=== PATIENT | male | born 1940 | race Caucasian/White ===

== ENCOUNTER 2017-07-24 16:33 | Emergency (ER) | payer MEDICARE, BC ==
[2017-07-24] MEDS: ACETAMINOPHEN 500 MG TABLET PO ×2 (17:42)
== END 2017-07-24 18:50 | disposition home or self-care (01) ==
LOC: ER 16:33
DX: S22.42XA Multiple fractures of ribs, left side, initial encounter for closed fracture (principal); S00.93XA Contusion of unspecified part of head, initial encounter; S50.02XA Contusion of left elbow, initial encounter; W18.09XA Striking against other object with subsequent fall, initial encounter; Y93.89 Activity, other specified; Y92.22 Religious institution as the place of occurrence of the external cause; Y99.8 Other external cause status
CPT/HCPCS: 70450; 71101; 72125; 73080; 93005; 99284-25